=== PATIENT | female | born 1960 | race Caucasian/White ===

== ENCOUNTER 2016-11-22 14:22 | Emergency (ER) | payer SELFPAY ==
[2016-11-22] MEDS ORDERED: NITROGLYCERIN 0.4 MG/TAB 25 TAB/BOTTLE SL PRN (14:52)
--- NOTE | 2016-11-22 14:52 | ER Document Report ---
ED Cardiac - General Chief Complaint: Chest Pain > 30 Stated Complaint: CHEST TIGHTNESS Notes: The patient is a 56-year-old female, past medical history hypertension, "early CHF", current smoker, presents with 1 day of midsternal chest tightness that started at rest. She has had this in the past and had a "mini heart attack" a few years ago. She received 1 nitroglycerin by EMS and took 324 mg aspirin. The nitroglycerin helped with her pain. She moved here from [facility] 2 years ago and has not established a primary care physician yet. She denies leg swelling, shortness of breath, fevers, back pain, cough, sputum, abdominal pain, nausea or vomiting. TRAVEL OUTSIDE OF THE U[place] IN LAST 30 DAYS: No - Related Data Allergies/Adverse Reactions: No Known Allergies Allergy (Verified 11/22/16 16:40) Past Medical History - General Information source: Patient - Social History Smoking Status: Current Every Day Smoker Family History: Reviewed & Not Pertinent Past Surgical History: Reports: Hx Abdominal Surgery - hernia, 27lb tumor removed from ovary, appendectomy, hysterectomy, Hx Appendectomy, Hx Section - x 2, Hx Hysterectomy, Hx Tonsillectomy Review of Systems - Review of Systems Notes: REVIEW OF SYSTEMS: CONSTITUTIONAL: -fevers, -chills EENT: -eye pain, -difficulty swallowing, -nasal congestion CARDIOVASCULAR: +chest pain, -syncope. RESPIRATORY: -cough, -SOB GASTROINTESTINAL: -abdominal pain, - nausea, -vomiting, -diarrhea GENITOURINARY: -dysuria, -hematuria MUSCULOSKELETAL: -back pain, -neck pain SKIN: -rash or skin lesions. HEMATOLOGIC: -easy bruising or bleeding. LYMPHATIC: -swollen, enlarged glands. NEUROLOGICAL: -altered mental status or loss of consciousness, -headache, - neurologic symptoms PSYCHIATRIC: -anxiety, -depression. ALL OTHER SYSTEMS REVIEWED AND NEGATIVE. Physical Exam - Vital signs Vitals: Resp 22 H 11/22/16 14:30 BP 159/100, HR 110, Pulse Ox 97% on RA, RR 20 - Notes Notes: PHYSICAL EXAMINATION: GENERAL: Well-appearing, well-nourished and in no acute distress. HEAD: Atraumatic, normocephalic. EYES: Pupils equal round and reactive to light, extraocular movements intact, sclera anicteric, conjunctiva are normal. ENT: nares patent, oropharynx clear without exudates. Moist mucous membranes. NECK: Normal range of motion, supple without lymphadenopathy LUNGS: Bilateral wheezing. No respiratory distress. HEART: Tachycardia. Regular rhythm. ABDOMEN: Soft, nontender, normoactive bowel sounds. No guarding, no rebound. No masses appreciated. EXTREMITIES: Normal range of motion, no pitting or edema. No cyanosis. NEUROLOGICAL: Cranial nerves grossly intact. Normal speech, normal gait. Normal sensory, motor, and reflex exams. PSYCH: Anxious. SKIN: Warm, Dry, normal turgor, no rashes or lesions noted. Course - Re-evaluation Re-evalutation: Patient is chest pain-free and tachycardia has resolved. EKG and 2 troponins do not show any evidence of acute ischemia. HEART score of 3. Patient is low to moderate risk for PE and d-dimer is negative. Instructed patient that she must follow-up with her primary care physician and payment collector for stress test tomorrow. Told to return immediately to the ER if she has worsening pain. She understands. Answered all questions. - Vital Signs Vital signs: Temp Pulse Resp BP Pulse Ox 97.9 F 99 18 126/76 H 96 11/22/16 14:31 11/22/16 14:31 11/22/16 19:01 11/22/16 19:01 11/22/16 19:01 - Laboratory Result Diagrams: 11/22/16 14:45 11/22/16 14:45 Laboratory results interpreted by me: 11/22/16 14:45 Chloride 109 H BUN 23 H - Diagnostic Test Radiology reviewed: Image reviewed, Reports reviewed Radiology results interpreted by me: CXR: NAD - EKG Interpretation by [place] EKG shows normal: Sinus rhythm, [place], Intervals, QRS Complexes, ST-T Waves Rate: Tachycardia - 103 Discharge - Discharge Clinical Impression: Chest pain Qualifiers: Chest pain type: other chest pain Qualified Code(s): R07.89 - Other chest pain Condition: Stable Disposition: HOME, SELF-CARE Additional Instructions: You must follow-up with the clinic and payment collector for stress test and further evaluation treatment of your chest pain. CHEST PAIN OF UNCLEAR CAUSE: The exact cause of your chest pain isn't clear. Fortunately, there is no evidence of a dangerous medical condition. Further testing may be required to find the source of the pain. Most often, we find that this pain is coming from the chest wall -- the muscles or rib joints in the chest. But chest pain can come from the lung and lung lining, the esophagus, the heart valves or heart lining, and even the stomach or gallbladder. Rest. Eat lightly until the pain is gone. We may prescribe medicine for pain and inflammation. You should call the physician immediately if the pain radiates to the shoulder, jaw or arms; if you start to run a fever or develop a cough; or if you develop shortness of breath, or other new or alarming symptoms. NORMAL EXAM AND WORKUP: At this time, your examination and workup show no significant abnormality. No significant abnormal physical findings were noted. All laboratory, EKG, and imaging (x-ray, CT scans, ultrasound) studies that were ordered show no significant abnormality. Although your examination and all studies that were ordered showed no significant abnormal finding, there are no examinations and no studies that are 100% accurate. There is always the possibility that some abnormality could exist and not be detected with physical examination or within the limits and capabilities of laboratory and other studies. You should return or follow up as you were instructed on your visit today for further evaluation if your symptoms do not resolve. CHEST WALL PAIN: Your chest pain may be coming from the chest wall. This is often caused by straining the muscles or joints in the chest during physical activity, direct trauma, coughing, or vigorous vomiting. Persons with arthritis are especially prone to this type of pain, due to inflammation of the cartilage joints near the breast bone. Occasionally, no cause can be found. Rest from strenuous physical activity. This kind of chest pain is usually made worse by movement of the chest. Depending on the symptoms, we may prescribe medicine for pain, muscle relaxation, and antiinflammatory effects. If the pain is new, and seems to be due to muscle strain, cold packs can help. Otherwise, apply gentle warmth to the painful area for 15 minutes every hour or two. You should call contact the doctor immediately if things change. Further evaluation is needed if you develop a fever or cough, if the nature of the pain changes, or if you become short of breath. ANGINA EPISODE: Your physician has diagnosed the pain you experienced as an episode of angina. Angina occurs when a portion of the heart muscle temporarily lacks oxygen. It does not cause any permanent heart damage, but serves as a warning. Hospitalization is not necessary now. Evaluation of your cardiac condition , and medical therapy for angina will be necessary. It's important you be sure to keep all appointments and take medication exactly as prescribed. Angina is usually treated with a type of "nitrate" medication. This is available as ointment, pills, or sublingual (under the tongue) tablets. Depending on your clinical situation, other medications may be added to help control angina. These may include beta blockers or calcium blockers. If episodes of angina are occurring with increased frequency, or if chest pain lasts longer than 15 minutes or does not respond to nitroglycerin, you must seek emergency medical care immediately. ASPIRIN: Aspirin has been shown to have a beneficial effect on blood circulation by reducing the clotting effect of platelets in the blood. These beneficial effects can be achieved by taking just a single baby (81 mg) aspirin a day. It is recommended that any person over the age of forty take a single baby aspirin every day for heart and brain circulation, unless you are allergic to aspirin or have some significant bleeding disorder. It is strongly recommended that people who have proven cardiac or blood circulation disturbances should take a baby aspirin every day. FOLLOW-UP CARE: If you have been referred to a physician for follow-up care, call the physician s office for an appointment as you were instructed or within the next two days. If you experience worsening or a significant change in your symptoms, notify the physician immediately or return to the Emergency Department at any time for re-evaluation. Referrals: ROBBY TOUSSAINT MD [ACTIVE STAFF] - Follow up as needed
[2016-11-22] MEDS ORDERED: IPRATROPIUM/ALBUTEROL 0.5-2.5 MG/3 ML AMPUL NEB ONE (14:55)
[2016-11-22 15:03] LABS: ABSOLUTE EOSINOPHILS # (AUTO) 0.1 10^3/uL (0.0-0.6); ABSOLUTE LYMPHOCYTES (AUTO) 1.7 10^3/uL (0.5-4.7); ABSOLUTE MONOCYTES (AUTO) 0.6 10^3/uL (0.1-1.4); ABSOLUTE NEUT (AUTO) 4.3 10^3/uL (1.7-8.2); BASOPHILS % (AUTO) 0.7 % (0-2); EOSINOPHILS % (AUTO) 1.5 % (0-6); HEMATOCRIT 41.3 % (36.0-47.0); HEMOGLOBIN 13.7 g/dL (12.0-15.5); HGB HCT DIFFERENCE -0.2; LYMPHOCYTES % (AUTO) 25.1 % (13-45); MEAN CORPUSCULAR HEMOGLOBIN 31.7 pg (27.0-33.4); MEAN CORPUSCULAR HGB CONC 33.2 g/dL (32.0-36.0); MEAN CORPUSCULAR VOLUME 96 fl (80-97); MONOCYTES % (AUTO) 9.2 % (3-13); RED BLOOD COUNT 4.33 10^6/uL (3.72-5.28); RED CELL DISTRIBUTION WIDTH 13.7 % (11.5-14.0); SEGMENTED NEUTROPHILS % (AUTO) 63.5 % (42-78); WHITE BLOOD COUNT 6.7 10^3/uL (4.0-10.5)
[2016-11-22 15:20] LABS: ALANINE AMINOTRANSFERASE 19 U/L (9-52); ALBUMIN 3.5 g/dL (3.5-5.0); ALKALINE PHOSPHATASE 59 U/L (38-126); ANION GAP 9 (5-19); ASPARTATE AMINO TRANSFERASE 14 U/L (14-36); BILIRUBIN,TOTAL 0.3 mg/dL (0.2-1.3); BLOOD UREA NITROGEN 23 mg/dL (7-20); CALCIUM 9.1 mg/dL (8.4-10.2); CARBON DIOXIDE 23 mmol/L (22-30); CHLORIDE 109 mmol/L (98-107); CREATINE KINASE 78 U/L (30-135); CREATININE RESULT 0.86 mg/dL (0.52-1.25); GLUCOSE 105 mg/dL (75-110); POTASSIUM 4.3 mmol/L (3.6-5.0); SODIUM 141.3 mmol/L (137-145); TOTAL PROTEIN 6.3 g/dL (6.3-8.2)
[2016-11-22] MEDS ORDERED: ACETAMINOPHEN 325 MG TABLET PO ONE (17:53)
--- NOTE | 2016-11-22 18:33 | EKG REPORT ---
SEVERITY:- ABNORMAL ECG - SINUS TACHYCARDIA NONSPECIFIC T ABNORMALITIES, LATERAL LEADS : Confirmed by: Michelle Barrientos MD 22-Nov-2016 18:33:01
[2016-11-22 19:41] VITALS: BP 126/76
== END 2016-11-22 19:37 | disposition home or self-care (01) ==
LOC: ER 14:22
DX: R07.89 Other chest pain (principal); F17.210 Nicotine dependence, cigarettes, uncomplicated; I10 Essential (primary) hypertension; I50.9 Heart failure, unspecified
CPT/HCPCS: 93005; 94640; 99284; 36415; 82550; 85025; 80053; 84484; 85379; 71010; 93010; J7620

== ENCOUNTER 2017-08-11 13:38 | Emergency (ER) | payer SELFPAY ==
[2017-08-11] MEDS ORDERED: MORPHINE SULFATE 10 MG/ML INJ IV ONE (13:47)
[2017-08-11] MEDS ORDERED: NORMAL SALINE 1000 ML 1,000 ML IV PRN (13:47)
--- NOTE | 2017-08-11 13:48 | ER Document Report ---
ED Medical Screen (RME) - General Chief Complaint: Abdominal Pain Stated Complaint: ABDOMINAL PAIN Time Seen by Provider: 08/11/17 13:44 Mode of Arrival: Ambulatory Information source: Patient TRAVEL OUTSIDE OF THE [place] IN LAST 30 DAYS: No - HPI Patient complains to provider of: Abdominal pain Notes: 08/11/17 13:48 56-year-old female presents to the emergency room complaining of firm lump to mid abdomen that is painful with vomiting - Related Data Allergies/Adverse Reactions: No Known Allergies Allergy (Verified 08/11/17 13:44) Past Medical History - Past Medical History Cardiac Medical History: Reports: Hx Hypercholesterolemia, Hx Hypertension Renal/ Medical History: Denies: Hx Peritoneal Dialysis Past Surgical History: Reports: Hx Abdominal Surgery - hernia, 27lb tumor removed from ovary, appendectomy, hysterectomy, Hx Appendectomy, Hx Section - x 2, Hx Hysterectomy, Hx Tonsillectomy Physical Exam - Vital signs Vitals: Temp Pulse Resp BP Pulse Ox 98.0 F 100 16 139/94 H 96 08/11/17 13:43 08/11/17 13:43 08/11/17 13:43 08/11/17 13:43 08/11/17 13:43 Course - Vital Signs Vital signs: Temp Pulse Resp BP Pulse Ox 98.0 F 100 16 139/94 H 96 08/11/17 13:43 08/11/17 13:43 08/11/17 13:43 08/11/17 13:43 08/11/17 13:43
[2017-08-11 14:30] LABS: ABSOLUTE EOSINOPHILS # (AUTO) 0.1 10^3/uL (0.0-0.6); ABSOLUTE LYMPHOCYTES (AUTO) 1.9 10^3/uL (0.5-4.7); ABSOLUTE MONOCYTES (AUTO) 0.5 10^3/uL (0.1-1.4); ABSOLUTE NEUT (AUTO) 3.6 10^3/uL (1.7-8.2); BASOPHILS % (AUTO) 0.7 % (0-2); EOSINOPHILS % (AUTO) 2.1 % (0-6); HEMATOCRIT 41.7 % (36.0-47.0); HEMOGLOBIN 14.8 g/dL (12.0-15.5); HGB HCT DIFFERENCE 2.7; LYMPHOCYTES % (AUTO) 30.9 % (13-45); MEAN CORPUSCULAR HEMOGLOBIN 33.5 pg (27.0-33.4); MEAN CORPUSCULAR HGB CONC 35.5 g/dL (32.0-36.0); MEAN CORPUSCULAR VOLUME 94 fl (80-97); MONOCYTES % (AUTO) 8.4 % (3-13); RED BLOOD COUNT 4.42 10^6/uL (3.72-5.28); RED CELL DISTRIBUTION WIDTH 12.9 % (11.5-14.0); SEGMENTED NEUTROPHILS % (AUTO) 57.9 % (42-78); WHITE BLOOD COUNT 6.2 10^3/uL (4.0-10.5)
[2017-08-11 14:39] LABS: PROTHROMBIN TIME 12.1 SEC (11.4-15.4)
[2017-08-11 14:40] LABS: PARTIAL THROMBOPLASTIN TIME 28.9 SEC (23.5-35.8)
--- NOTE | 2017-08-11 14:41 | ER Document Report ---
ED General - General Chief Complaint: Abdominal Pain Stated Complaint: ABDOMINAL PAIN Time Seen by Provider: 08/11/17 13:44 Mode of Arrival: Ambulatory Notes: 56-year-old female history of multiple abdominal surgeries including tumor resection likely lysis of adhesions and multiple abdominal wall hernia repair presents with worsening midline abdominal pain burning and sharp intermittent for several months but worse today associated with an increased amount of bulging and lump in her midline abdomen worse than prior. Vomiting intermittently for the past few days. No fever chills. No urinary symptoms recently. Is passing gas and having bowel movements. TRAVEL OUTSIDE OF THE [place] IN LAST 30 DAYS: No - Related Data Allergies/Adverse Reactions: No Known Allergies Allergy (Verified 08/11/17 13:44) Past Medical History - General Information source: Patient - Social History Smoking Status: Current Every Day Smoker Chew tobacco use (# tins/day): No Frequency of alcohol use: None Drug Abuse: None Family History: Reviewed & Not Pertinent - Medical History Medical History: Other Notes: Abdominal mass bowel resection hysterectomy - Past Medical History Cardiac Medical History: Reports: Hx Hypercholesterolemia, Hx Hypertension Renal/ Medical History: Denies: Hx Peritoneal Dialysis Past Surgical History: Reports: Hx Abdominal Surgery - hernia, 27lb tumor removed from ovary, appendectomy, hysterectomy, Hx Appendectomy, Hx Section - x 2, Hx Hysterectomy, Hx Tonsillectomy Review of Systems - Review of Systems Notes: REVIEW OF SYSTEMS GEN: Denies fever, chills, weight loss ENT: Denies sore throat, nasal discharge, ear pain EYES: Denies blurry vision, eye pain, discharge CV: Denies chest pain, palpitations, edema RESP: Denies cough, shortness of breath, wheezing GI: Abdominal pain mass nausea vomiting MSK: Denies joint pain/swelling, edema, SKIN: Denies rash, skin lesions LYMPH: Denies swollen glands/lymph nodes NEURO: Denies headache, focal weakness or numbness, dizziness PSYCH: Denies depression, suicidal or homicidal ideation PHYSICAL EXAMINATION General: No acute distress, well-nourished Head: Atraumatic, normocephalic ENT: Mouth normal, oropharynx moist, no exudates or tonsillar enlargement Eyes: Conjunctiva normal, pupils equal, lids normal Neck: No JVD, supple, no guarding CVS: Normal rate, regular rhythm, no murmurs Resp: No resp distress, equal and normal breath sounds bilaterally GI: Mild distention. Patient's pants are unbuttoned and cannot button. Hyperactive bowel sounds. Midline ventral hernia versus rectus diastases with mild tenderness. No remote tenderness guarding or rebound. Ext: No deformities, no edema, normal range of motion in upper and lower ext Back: No CVA or midline TTP Skin: No rash, warm Lymphatic: No lymphadeopathy noted Neuro: Awake, alert. Face symmetric. GCS 15. Physical Exam - Vital signs Vitals: Temp Pulse Resp BP Pulse Ox 98.0 F 100 16 139/94 H 96 08/11/17 13:43 08/11/17 13:43 08/11/17 13:43 08/11/17 13:43 08/11/17 13:43 Course - Re-evaluation Re-evalutation: 08/11/17 17:48 Patient with multiple abdominal surgeries and known hernias presents with periumbilical burning abdominal pain and increased bulging subjectively. On exam she has some mild rectus diastases but no definite hernia or tenderness in the area of the hernia. Her differential includes hernia, incarcerated hernia, GERD or other intestinal obstruction. She got labs and pain medicine. CT was ordered which showed fat-containing ventral hernia. Patient was reassessed at 5:48 PM. She feels much better and is asking for something for pain to go as well as some of her acid. I do not believe she has an abdominal emergency at this point, and given her clinical exam I do not believe there is a sliding hernia that is going in and out and causing obstruction. I will prescribe her a short course of [place] for pain as well as an acid reducing medicine and she will follow-up with a local surgeon. Insert discharge - Vital Signs Vital signs: Temp Pulse Resp BP Pulse Ox 98.0 F 100 16 139/94 H 96 08/11/17 13:43 08/11/17 13:43 08/11/17 13:43 08/11/17 13:43 08/11/17 13:43 - Laboratory Result Diagrams: 08/11/17 14:05 08/11/17 14:05 Laboratory results interpreted by me: 08/11/17 08/11/17 14:05 14:05 MCH 33.5 H BUN 21 H Glucose 111 H Direct Bilirubin 0.5 H - Diagnostic Test Radiology reviewed: Reports reviewed Discharge - Discharge Clinical Impression: Abdominal pain, periumbilical Ventral hernia Qualifiers: Obstruction and gangrene presence: without obstruction or gangrene Qualified Code(s): K43.9 - Ventral hernia without obstruction or gangrene Condition: Good Disposition: HOME, SELF-CARE Instructions: Abdominal Pain ([facility]) Prescriptions: Famotidine [Pepcid 20 mg Tablet] 20 mg PO DAILY #12 tablet Hydrocodone/Acetaminophen [[place] 5-325 mg Tablet] 1 tab PO Q4 PRN #10 tablet PRN Reason: Referrals: JEANNA MILLAN MD [[facility]] - Follow up in 1 week
[2017-08-11 14:44] LABS: ALANINE AMINOTRANSFERASE 24 U/L (9-52); ALBUMIN 4.5 g/dL (3.5-5.0); ALKALINE PHOSPHATASE 73 U/L (38-126); ANION GAP 11 (5-19); ASPARTATE AMINO TRANSFERASE 17 U/L (14-36); BILIRUBIN,DIRECT 0.5 mg/dL (0.0-0.4); BILIRUBIN,TOTAL 0.6 mg/dL (0.2-1.3); BLOOD UREA NITROGEN 21 mg/dL (7-20); CARBON DIOXIDE 23 mmol/L (22-30); CHLORIDE 107 mmol/L (98-107); GLUCOSE 111 mg/dL (75-110); LIPASE 120.9 U/L (23-300); POTASSIUM 4.4 mmol/L (3.6-5.0); SODIUM 141.2 mmol/L (137-145); TOTAL PROTEIN 7.6 g/dL (6.3-8.2)
[2017-08-11] MEDS ORDERED: FENTANYL CITRATE INJ/PF 100 MCG/2 ML AMPUL IV ONE (15:49)
--- NOTE | 2017-08-11 16:46 | RADIOLOGY REPORT (SQ) ---
EXAM DESCRIPTION: CT ABD/PELVIS WITH IV ONLY COMPLETED DATE/TIME: 08/11/2017 4:18 pm REASON FOR STUDY: umbilical hernia r/o ngozi COMPARISON: None. TECHNIQUE: CT scan of the abdomen and pelvis performed using helical scanning technique with dynamic intravenous contrast injection. No oral contrast. Images reviewed with lung, soft tissue, and bone windows. Reconstructed coronal and sagittal MPR images reviewed. Delayed images for evaluation of the urinary system also acquired. All images stored on PACS. All CT scanners at this facility use dose modulation, iterative reconstruction, and/or weight based d osing when appropriate to reduce radiation dose to as low as reasonably achievable (ALARA). [facility]: Dose Right [facility]: CareDose [facility]: Dose Right [facility]: Teradose 4D [facility]: Caipiaobao CONTRAST TYPE AND DOSE: contrast/concentration: Isovue 370.00 mg/ml; Total Contrast Delivered: 89.0 ml; Total Saline Delivered: 50.0 ml RENAL FUNCTION: Creatinine 0.9 BUN 21 RADIATION DOSE: Up-to-date CT equipment and radiation dose reduction techniques were employed. CTDIv ol: 12.8 - 17.6 mGy. DLP: 1535 mGy-cm.. LIMITATIONS: None. FINDINGS: LOWER CHEST: No significant findings. No nodules or infiltrates. LIVER: Normal size. No masses. No dilated ducts. SPLEEN: Normal size. No focal lesions. PANCREAS: No masses. No significant calcifications. No adjacent inflammation or peripancreatic fluid collections. Pancreatic duct not dilated. GALLBLADDER: No identified stones by CT criteria. No inflammatory changes to suggest cholecystitis. ADRENAL GLANDS: No significant masses or asymmetry. RIGHT KIDNEY AND URETER: No solid masses. No significant calcifications. No hydronephrosis or hyd roureter. LEFT KIDNEY AND URETER: No solid masses. No significant calcifications. No hydronephrosis or hydr oureter. AORTA AND VESSELS: No aneurysm. No dissection. Renal arteries, SMA, celiac without stenosis. RETROPERITONEUM: No retroperitoneal adenopathy, hemorrhage or masses. BOWEL AND PERITONEAL CAVITY: No masses or inflammatory changes. No free fluid or peritoneal masses. APPENDIX: Surgically absent. PELVIS: No mass. No free fluid. Normal bladder. ABDOMINAL WALL: The patient appears to have had a ventral hernia repair with a mesh graft. Just supe rior to the graft there is a very small defect less than 1 cm in size that contains only fat. BONES: Thoracolumbar spondylosis. No osseous lesions. OTHER: No other significant finding. IMPRESSION: There is a very small ventral hernia just above the superior margin of the mesh graft. This contains only fat. TECHNICAL DOCUMENTATION: JOB ID: [id number] Quality ID # [id number]: Final reports with documentation of one or more dose reduction techniques (e.g., Au tomated exposure control, adjustment of the mA and/or kV according to patient size, use of iterative reconstruction technique) 2010 [employer]- All Rights Reserved
[2017-08-11 17:59] VITALS: BP 152/90
== END 2017-08-11 18:05 | disposition home or self-care (01) ==
LOC: ER 13:38
DX: K43.9 Ventral hernia without obstruction or gangrene (principal); R10.33 Periumbilical pain; R11.2 Nausea with vomiting, unspecified; I10 Essential (primary) hypertension; Z98.890 Other specified postprocedural states; Z90.710 Acquired absence of both cervix and uterus; Z90.49 Acquired absence of other specified parts of digestive tract
CPT/HCPCS: 99284; 96374; 96375; 36415; 83690; 85025; 85610; 85730; 80053; 74177; J3010; J2270

== ENCOUNTER 2017-10-12 06:00 | Emergency (ER) | payer SELFPAY ==
[2017-10-12] MEDS ORDERED: CYCLOBENZAPRINE HCL 10 MG TABLET PO ONE (06:59)
[2017-10-12] MEDS ORDERED: KETOROLAC TROMETHAMINE 60 MG/2 ML SDV IM ONE (06:59)
--- NOTE | 2017-10-12 07:00 | ER Document Report ---
ED General Pain - General Chief Complaint: Back Pain Stated Complaint: FLANK PAIN Time Seen by Provider: 10/12/17 06:50 Notes: Patient presents with acute on chronic low back pain, upper lumbar lower thoracic midline similar to prior except for some radiation around the right flank. She is taking lots of Motrin at home. Previously had a deep nerve stimulator as well as pain management in [place] but is moved here and has been here for over a year and not contacted pain management or primary care. She denies urinary symptoms or fever. Unchanged chronic numbness in both feet. No loss of bowel or bladder. No fever. TRAVEL OUTSIDE OF THE [place] IN LAST 30 DAYS: No - Related Data Allergies/Adverse Reactions: No Known Allergies Allergy (Verified 08/11/17 13:44) Past Medical History - General Information source: Patient - Social History Smoking Status: Current Every Day Smoker Smoking Education Provided: Yes - The patient ED visit today was directly related to their abuse of tobacco. Family History: Reviewed & Not Pertinent - Past Medical History Cardiac Medical History: Reports: Hx Hypercholesterolemia, Hx Hypertension Renal/ Medical History: Denies: Hx Peritoneal Dialysis Past Surgical History: Reports: Hx Abdominal Surgery - hernia, 27lb tumor removed from ovary, appendectomy, hysterectomy, Hx Appendectomy, Hx Section - x 2, Hx Hysterectomy, Hx Tonsillectomy Physical Exam - Vital signs Vitals: Temp Pulse Resp BP Pulse Ox 98.4 F 84 18 185/74 H 98 10/12/17 06:03 10/12/17 06:03 10/12/17 06:03 10/12/17 06:03 10/12/17 06:03 Course - Re-evaluation Re-evalutation: 10/12/17 07:01 Patient presents with acute on chronic back pain. Unchanged neuro status. Previously on pain management. Slightly decreased sensation in both legs which she says is chronic. Only new feature would be radiation around to the flank. Will rule out kidney stone and pyelonephritis but I think this is less likely given her history of chronic degenerative back disease. She did not get a ride here and will not receive narcotics in the emergency department. She will also not receive a prescription given that this is chronic pain. I will contact her with spine and pain management on discharge. Does not need imaging today in my opinion. Doubt cauda equina compression or abscess. No history of malignancy. I have discussed with the patient there likely diagnosis, aftercare plan, follow-up plans and my usual and customary return precautions. They verbalized understanding of this. - Vital Signs Vital signs: Temp Pulse Resp BP Pulse Ox 98.4 F 84 18 185/74 H 98 10/12/17 06:03 10/12/17 06:03 10/12/17 06:03 10/12/17 06:03 10/12/17 06:03 Discharge - Discharge Clinical Impression: Acute exacerbation of chronic low back pain Condition: Good Disposition: HOME, SELF-CARE Prescriptions: Gabapentin [Neurontin 300 mg Capsule] 300 mg PO QHS #30 cap Prednisone 40 mg PO QAM #10 tablet Referrals: MONIQUE CARLSON MD [ACTIVE STAFF] - Follow up as needed
[2017-10-12 07:51] LABS: APPEARANCE,URINE SLIGHTLY-CLOUDY; BILIRUBIN,URINE NEGATIVE (NEGATIVE); GLUCOSE, URINE 50 mg/dL (NEGATIVE); KETONES,URINE NEGATIVE (NEGATIVE); LEUKOCYTE ESTERASE,URINE MODERATE (NEGATIVE); NITRITE,URINE POSITIVE (NEGATIVE); PROTEIN,URINE NEGATIVE (NEGATIVE); URINE SPECIFIC GRAVITY 1.025; UROBILINOGEN,URINE NEGATIVE mg/dL (<2.0)
[2017-10-12 07:53] LABS: BACTERIA,URINE 4+ /HPF; WBC,URINE 20-30 /HPF
[2017-10-12 08:59] VITALS: BP 156/77
== END 2017-10-12 08:58 | disposition home or self-care (01) ==
LOC: ER 06:00
DX: N12 Tubulo-interstitial nephritis, not specified as acute or chronic (principal); G89.29 Other chronic pain; M54.5 Low back pain; M54.6 Pain in thoracic spine; R20.0 Anesthesia of skin; I10 Essential (primary) hypertension; F17.200 Nicotine dependence, unspecified, uncomplicated; Z71.6 Tobacco abuse counseling
CPT/HCPCS: 99283; 96372; 81001; J1885

== ENCOUNTER → 2018-03-03 | Outpatient (CLI) | payer OTHER ==
[2018-03-03 09:14] LABS: ABSOLUTE EOSINOPHILS # (AUTO) 0.1 10^3/uL (0.0-0.6); ABSOLUTE LYMPHOCYTES (AUTO) 1.8 10^3/uL (0.5-4.7); ABSOLUTE MONOCYTES (AUTO) 0.4 10^3/uL (0.1-1.4); ABSOLUTE NEUT (AUTO) 2.3 10^3/uL (1.7-8.2); BASOPHILS % (AUTO) 0.5 % (0-2); EOSINOPHILS % (AUTO) 2.8 % (0-6); HEMATOCRIT 41.8 % (36.0-47.0); HEMOGLOBIN 14.3 g/dL (12.0-15.5); LYMPHOCYTES % (AUTO) 38.7 % (13-45); MEAN CORPUSCULAR HEMOGLOBIN 32.9 pg (27.0-33.4); MEAN CORPUSCULAR HGB CONC 34.1 g/dL (32.0-36.0); MEAN CORPUSCULAR VOLUME 96 fl (80-97); MONOCYTES % (AUTO) 9.3 % (3-13); PLATELET COUNT 188 10^3/uL (150-450); RED BLOOD COUNT 4.34 10^6/uL (3.72-5.28); RED CELL DISTRIBUTION WIDTH 13.1 % (11.5-14.0); SEGMENTED NEUTROPHILS % (AUTO) 48.7 % (42-78); TOTAL CELLS COUNTED % (AUTO) 100 %; WHITE BLOOD COUNT 4.7 10^3/uL (4.0-10.5)
--- NOTE | 2018-03-03 09:38 | RADIOLOGY REPORT (SQ) ---
EXAM DESCRIPTION: L SPINE WHOLE COMPLETED DATE/TIME: 03/03/2018 9:03 am REASON FOR STUDY: LOW BACK PAIN (M19.90) M19.90 UNSPECIFIED OSTEOARTHRITIS, UNSPECIFIED SITE COMPARISON: None. NUMBER OF VIEWS: Five views including obliques. TECHNIQUE: AP, lateral, oblique, and sacral radiographic images acquired of the lumbar spine. LIMITATIONS: None. FINDINGS: MINERALIZATION: Normal. SEGMENTATION: Normal. No transitional anatomy. ALIGNMENT: Normal. VERTEBRAE: Maintained height. No fracture or worrisome bone lesion. DISCS: Multilevel disc space narrowing with osteophytes. POSTERIOR ELEMENTS: Pedicles and facets are intact. No pars defect or posterior arch defects. Facet arthropathy is present. HARDWARE: None in the spine. PARASPINAL SOFT TISSUES: Normal. PELVIS: Intact as visualized. No fractures or worrisome bone lesions. SI joints intact. OTHER: No other significant finding. IMPRESSION: SPONDYLOSIS WITHOUT BONE LESION OR FRACTURE. TECHNICAL DOCUMENTATION: JOB ID: [id number] [employer]- All Rights Reserved Reading location - IP/workstation name: [facility]-REPLACED BY [facility]
[2018-03-03 09:43] LABS: ALANINE AMINOTRANSFERASE 17 U/L (9-52); ALBUMIN 3.8 g/dL (3.5-5.0); ALKALINE PHOSPHATASE 64 U/L (38-126); ANION GAP 10 (5-19); ASPARTATE AMINO TRANSFERASE 13 U/L (14-36); BILIRUBIN,DIRECT 0.3 mg/dL (0.0-0.4); BILIRUBIN,TOTAL 0.3 mg/dL (0.2-1.3); BLOOD UREA NITROGEN 18 mg/dL (7-20); CALCIUM 9.4 mg/dL (8.4-10.2); CARBON DIOXIDE 27 mmol/L (22-30); CHLORIDE 108 mmol/L (98-107); CHOLESTEROL 254.12 mg/dL (0-200); GLUCOSE 124 mg/dL (75-110); SODIUM 144.5 mmol/L (137-145); TOTAL PROTEIN 6.6 g/dL (6.3-8.2); TRIGLYCERIDES 314 mg/dL (<150)
[2018-03-03 09:54] LABS: DIRECT LDL 140 mg/dL (<100)
[2018-03-03 09:58] LABS: VLDL CHOLESTEROL 62.8 mg/dL (10-31)
== END ==
LOC: CCC 08:05
DX: M54.5 Low back pain (principal); M47.896 Other spondylosis, lumbar region; E78.5 Hyperlipidemia, unspecified; M19.90 Unspecified osteoarthritis, unspecified site
CPT/HCPCS: 36415; 72110; 80053; 80061; 82306; 83036; 84443; 85025

== ENCOUNTER 2018-11-05 12:02 | Emergency (ER) | payer BC, OTHER ==
--- NOTE | 2018-11-05 12:57 | ER Document Report ---
ED Medical Screen (RME) - General Chief Complaint: Back Pain Stated Complaint: FALL,LEG PAIN Time Seen by Provider: 11/05/18 12:20 Mode of Arrival: Ambulatory Information source: Patient Notes: 58-year-old female presented to ED for complaint of bilateral legs arm and back pain. She states that she intermittently has severe leg cramps and shaking. She states it used to be limited to the left leg and now is both arms and both legs. She states this is just been first a couple days. She states she was going to the community clinic but never told them about the shaking and cramping in the left leg. She states she was seeing them for high cholesterol high blood pressure spinal disc disease diabetes and vitamin D deficiency. She states this shaking has gotten to the point that now she drops things all the time and when she is driving down the road sometimes she cannot roller picker her leg to move it from one pedal to the other. She states that yesterday the pain was much worse than normal. She states she has had to come to the emergency room and be admitted for low potassium and stay for several days to replenish her potassium. She does states she smokes a pack a day but does not drink or do any drugs. I have spoken with Dr. Bowesn and he suggested CBC chemistry magnesium and EKG. These were ordered. I have greeted and performed a rapid initial assessment of this patient. A comprehensive ED assessment and evaluation of the patient, analysis of test results and completion of medical decision making process will be conducted by an additional ED providers. TRAVEL OUTSIDE OF THE [place] IN LAST 30 DAYS: No - Related Data Allergies/Adverse Reactions: No Known Allergies Allergy (Verified 11/05/18 12:04) Past Medical History - Past Medical History Cardiac Medical History: Reports: Hx Hypercholesterolemia, Hx Hypertension Renal/ Medical History: Denies: Hx Peritoneal Dialysis Past Surgical History: Reports: Hx Abdominal Surgery - hernia, 27lb tumor removed from ovary, appendectomy, hysterectomy, Hx Appendectomy, Hx Section - x 2, Hx Hysterectomy, Hx Tonsillectomy Physical Exam - Vital signs Vitals: Temp Pulse Resp BP Pulse Ox 98.4 F 117 H 18 187/82 H 100 11/05/18 12:13 11/05/18 12:13 11/05/18 12:13 11/05/18 12:13 11/05/18 12:13 Course - Vital Signs Vital signs: Temp Pulse Resp BP Pulse Ox 98.4 F 117 H 18 187/82 H 100 11/05/18 12:13 11/05/18 12:13 11/05/18 12:13 11/05/18 12:13 11/05/18 12:13 Doctor's Discharge - Discharge Referrals: [facility] [Primary Care Provider] - Follow up as needed
--- NOTE | 2018-11-05 13:21 | ER Document Report ---
ED General Pain - General Chief Complaint: Back Pain Stated Complaint: FALL,LEG PAIN Time Seen by Provider: 11/05/18 12:20 Mode of Arrival: Ambulatory Notes: 58-year-old female presented to ED for complaint of bilateral legs arm and back pain. She states that she intermittently has severe leg cramps and shaking. Sh e states it used to be limited to the left leg and now is both arms and both legs. She states she was going to the community clinic but never told them about the shaking and cramping in the left leg. The patient has a history of chronic back pain and was supposed to have surgery on her back several years ago but it got canceled and she never reengaged. A history of chronic low back pain and intermittent numbness and tingling of the legs that come and go. For the last year the patient has been having tremors on and off on her upper extremities. She states it switches from the right arm to the left arm and back and forth. She has seen a [facility] but really has not worked this up. Patient is very anxious. She denies any chest pain or shortness of breath. TRAVEL OUTSIDE OF THE [place] IN LAST 30 DAYS: No - Related Data Allergies/Adverse Reactions: No Known Allergies Allergy (Verified 11/05/18 12:04) Past Medical History - General Information source: Patient - Social History Smoking Status: Never Smoker Chew tobacco use (# tins/day): No Frequency of alcohol use: None Drug Abuse: None Family History: Reviewed & Not Pertinent Patient has suicidal ideation: No Patient has homicidal ideation: No - Past Medical History Cardiac Medical History: Reports: Hx Hypercholesterolemia, Hx Hypertension Renal/ Medical History: Denies: Hx Peritoneal Dialysis Past Surgical History: Reports: Hx Abdominal Surgery - hernia, 27lb tumor removed from ovary, appendectomy, hysterectomy, Hx Appendectomy, Hx Section - x 2, Hx Hysterectomy, Hx Tonsillectomy Review of Systems - Review of Systems Constitutional: denies: Chills, Fever EENT: denies: Blurred vision Cardiovascular: denies: Chest pain, Edema Respiratory: denies: Short of breath Gastrointestinal: denies: Nausea, Vomiting Genitourinary: denies: Dysuria, Hematuria Musculoskeletal: Back pain Neurological/Psychological: Sensory change, Tremor. denies: Hallucinations, Paralysis, Headaches -: Yes All other systems reviewed and negative Physical Exam - Vital signs Vitals: Temp Pulse Resp BP Pulse Ox 98.4 F 117 H 18 187/82 H 100 11/05/18 12:13 11/05/18 12:13 11/05/18 12:13 11/05/18 12:13 11/05/18 12:13 - Notes Notes: GENERAL_APPEARANCE: well_nourished, alert, cooperative, anxious VITALS: reviewed, see vital signs table. HEAD: no_swelling\tenderness on the head. EYES: PERRL, EOMI, conjunctiva_clear. NOSE: no_nasal_discharge. MOUTH: (-)decreased moisture. THROAT: no_throat_inflammation, no_airway_obstruction. no_lymphadenopathy NECK: supple, no_neck_tenderness, (-)thyromegaly. BACK: L4-L5 midline no step-offs no deformities, healed scar no redness no heat CHEST_WALL: no_chest_tenderness. LUNGS: no_wheezing, no_rales, no_rhonchi, (-)accessory muscle use, good air exchange bilateral. HEART: normal_rate, normal_rhythm, normal_S1, normal_S2, (-)S3, (-)S4, no_murmur, no_rub. ABDOMEN: normal_BS, soft, no_abd_tenderness, (-)guarding, (-)rebound, no_organomegaly, no_abd_masses. EXTREMITIES: good pulses in all_extremities, no_swelling\tenderness in the extremities, no_edema. SKIN: warm, dry, good_color, no_rash. MENTAL_STATUS: speech_clear, oriented_X_3, normal_affect, responds_appropriately to questions. NEURO: Neg Motor or Sensory Deficits on exam, CN 2-12 intact, DTR 2+ symmetric x 4, No cerbellar signs, the patient does have a tremor of bilateral upper extremities on exam the patient's right arm would shake and then it was switched to the left arm. This was back and forth the seem to be intentional. Course - Re-evaluation Re-evalutation: 11/05/18 13:19 Went to the room to see her and she was not in the room. The patient walked out to her car and came back into the ER. She was walking without signs of any ataxia. Her neuro exam shows no focal deficits. The patient complains of intermittent tremor of the upper extremities. She states the tremor goes back and forth on her right to her left arm. Occasionally she will feel pins and needles to the right or left arm. She also history of chronic back pain was postop surgery 3 years ago and states he has chronic issues with her legs. The patient told the PA that she had low potassium the last time this happened and had to be hospitalized. 11/05/18 13:22 We will check the potassium. We will check for electrolyte abnormalities. The patient will likely need to see a neurologist and pick back up with her neurosurgeon. 11/05/18 15:02 Potassium and magnesium were normal CT of the brain was normal. The patient has been from out of the area. She tells me a story that her was addicted to methamphetamine while she lived in [place]. Patient is asked for some pain medicine I will prescribe her something n onnarcotic. We will try some gabapentin since this may be neuropathic pain. As far as the tremors concern she will need to see a neurologist for that I will do a referral. - Vital Signs Vital signs: Temp Pulse Resp BP Pulse Ox 98.4 F 117 H 18 187/82 H 100 11/05/18 12:13 11/05/18 12:13 11/05/18 12:13 11/05/18 12:13 11/05/18 12:13 - Laboratory Result Diagrams: 11/05/18 13:22 11/05/18 13:22 Laboratory results interpreted by me: 11/05/18 13:22 BUN 21 H Glucose 136 H Discharge - Discharge Clinical Impression: Tremor, Neuropathy Condition: Good Disposition: HOME, SELF-CARE Instructions: Neuropathy ([facility]) Additional Instructions: He will need to have a referral to neurology for your chronic tremor. I think some your numbness is due to neuropathy. Will prescribe some gabapentin for you. You also need to reengage your back surgeon to have your back reevaluated for the surgery that you did not have several years ago. Prescriptions: Gabapentin [Neurontin 300 mg Capsule] 300 mg PO Q8 #90 cap Referrals: [facility] [NO LOCAL MD] - Follow up as needed ANITRA MESSER MD [NO LOCAL MD] - Follow up as needed CRIS CHAUDHARI MD [ACTIVE STAFF] - Follow up as needed KALLI SALINAS MD [NO LOCAL MD] - Follow up as needed
[2018-11-05 13:51] LABS: APPEARANCE,URINE CLEAR; BILIRUBIN,URINE NEGATIVE (NEGATIVE); COLOR,URINE YELLOW; GLUCOSE, URINE NEGATIVE (NEGATIVE); KETONES,URINE NEGATIVE (NEGATIVE); LEUKOCYTE ESTERASE,URINE NEGATIVE (NEGATIVE); NITRITE,URINE NEGATIVE (NEGATIVE); PROTEIN,URINE NEGATIVE (NEGATIVE); URINE SPECIFIC GRAVITY 1.014; UROBILINOGEN,URINE NEGATIVE mg/dL (<2.0)
--- NOTE | 2018-11-05 13:51 | RADIOLOGY REPORT (SQ) ---
EXAM DESCRIPTION: CT HEAD WITHOUT COMPLETED DATE/TIME: 11/05/2018 1:36 pm REASON FOR STUDY: tremors COMPARISON: None. TECHNIQUE: Axial images acquired through the brain without intravenous contrast. Images reviewed wi th bone, brain and subdural windows. Additional sagittal and coronal reconstructions were generated. Images stored on PACS. All CT scanners at this facility use dose modulation, iterative reconstruction, and/or weight based d osing when appropriate to reduce radiation dose to as low as reasonably achievable (ALARA). [facility]: Dose Right [facility]: CareDose [facility]: Dose Right [facility]: Teradose 4D [facility]: NEOS [employer] RADIATION DOSE: CT Rad equipment meets quality standard of care and radiation dose reduction techniq ues were employed. CTDIvol: 55.2 mGy. DLP: 1001 mGy-cm. mGy. LIMITATIONS: None. FINDINGS: VENTRICLES: Normal size and contour. CEREBRUM: No masses. No hemorrhage. No midline shift. No evidence for acute infarction. Normal gra y/white matter differentiation. No areas of low density in the white matter. CEREBELLUM: No masses. No hemorrhage. No alteration of density. No evidence for acute infarction. EXTRAAXIAL SPACES: No fluid collections. No masses. ORBITS AND GLOBE: No intra- or extraconal masses. Normal contour of globe without masses. CALVARIUM: No fracture. PARANASAL SINUSES: Postoperative changes. No fluid. SOFT TISSUES: No mass or hematoma. OTHER: Mild left mastoid effusion. IMPRESSION: 1. Mild left mastoid effusion. Otherwise unremarkable CT of the brain. EVIDENCE OF ACUTE STROKE: NO. COMMENT: Quality ID # [id number]: Final reports with documentation of one or more dose reduction techniques (e.g., Automated exposure control, adjustment of the mA and/or kV according to patient size, use of iterative reconstruction technique) TECHNICAL DOCUMENTATION: JOB ID: [id number] [employer]- All Rights Reserved Reading location - IP/workstation name: [email or web address]
[2018-11-05 13:57] LABS: ABSOLUTE EOSINOPHILS # (AUTO) 0.1 10^3/uL (0.0-0.6); ABSOLUTE LYMPHOCYTES (AUTO) 2.1 10^3/uL (0.5-4.7); ABSOLUTE MONOCYTES (AUTO) 0.7 10^3/uL (0.1-1.4); ABSOLUTE NEUT (AUTO) 2.4 10^3/uL (1.7-8.2); BASOPHILS % (AUTO) 0.7 % (0-2); EOSINOPHILS % (AUTO) 2.4 % (0-6); HEMOGLOBIN 13.8 g/dL (12.0-15.5); MEAN CORPUSCULAR HEMOGLOBIN 32.4 pg (27.0-33.4); MEAN CORPUSCULAR HGB CONC 35.3 g/dL (32.0-36.0); MEAN CORPUSCULAR VOLUME 92 fl (80-97); MONOCYTES % (AUTO) 12.2 % (3-13); PLATELET COUNT 220 10^3/uL (150-450); RED BLOOD COUNT 4.26 10^6/uL (3.72-5.28); SEGMENTED NEUTROPHILS % (AUTO) 44.7 % (42-78); TOTAL CELLS COUNTED % (AUTO) 100 %; WHITE BLOOD COUNT 5.4 10^3/uL (4.0-10.5)
[2018-11-05 14:06] LABS: ALANINE AMINOTRANSFERASE 19 U/L (9-52); ALBUMIN 3.9 g/dL (3.5-5.0); ALKALINE PHOSPHATASE 68 U/L (38-126); ANION GAP 8 (5-19); ASPARTATE AMINO TRANSFERASE 15 U/L (14-36); BILIRUBIN,DIRECT 0.3 mg/dL (0.0-0.4); BILIRUBIN,TOTAL 0.4 mg/dL (0.2-1.3); BLOOD UREA NITROGEN 21 mg/dL (7-20); CALCIUM 9.4 mg/dL (8.4-10.2); CARBON DIOXIDE 23 mmol/L (22-30); CHLORIDE 107 mmol/L (98-107); GLUCOSE 136 mg/dL (75-110); POTASSIUM 4.1 mmol/L (3.6-5.0); SODIUM 137.6 mmol/L (137-145); TOTAL PROTEIN 6.6 g/dL (6.3-8.2)
[2018-11-05 15:25] VITALS: BP 142/97
--- NOTE | 2018-11-05 20:28 | EKG REPORT ---
SEVERITY:- BORDERLINE ECG - SINUS RHYTHM BORDERLINE T ABNORMALITIES, ANT-LAT LEADS : Confirmed by: Enriqueta Ramirez 05-Nov-2018 20:27:44
== END 2018-11-05 15:25 | disposition home or self-care (01) ==
LOC: ER 12:02
DX: R25.1 Tremor, unspecified (principal); G62.9 Polyneuropathy, unspecified; M79.604 Pain in right leg; M79.605 Pain in left leg; R25.2 Cramp and spasm; M54.9 Dorsalgia, unspecified; G89.29 Other chronic pain; I10 Essential (primary) hypertension
CPT/HCPCS: 36415; 70450; 80053; 81001; 83735; 85025; 93005; 93010; 99284

== ENCOUNTER 2019-04-27 08:56 | Emergency (ER) | payer BC ==
--- NOTE | 2019-04-27 10:22 | ER Document Report ---
ED Medical Screen (RME) - General Chief Complaint: Foot Pain Stated Complaint: FOOT PAIN Time Seen by Provider: 04/27/19 10:15 Primary Care Provider: BRDAEN GARVIN DPM [Primary Care Provider] - Follow up as needed Mode of Arrival: Ambulatory Information source: Patient Notes: Patient presents emergency department with left foot pain. She reports 2 to 3 months ago she had a blister on her foot and chicken blood got soaked into the blister. Patient works at a chicken farm. She was placed on antibiotics. She went to see Dr. Garvin the supervisory geographer a couple weeks ago and he said he could not find a pulse on her foot so he sent her for another test. Positive pedal pulse noted now. She was unable to get that test done because she did not have a car. She presents today with painful great toe swollen warm with erythema and healing blister on the lateral part of her left foot. I have greeted and performed a rapid initial assessment of this patient. A comprehensive ED assessment and evaluation of the patient, analysis of test results and completion of the medical decision making process will be conducted by additional ED providers. Dictation of this chart was performed using voice recognition software; therefore, there may be some unintended grammatical errors. TRAVEL OUTSIDE OF THE [place] IN LAST 30 DAYS: No - Related Data Allergies/Adverse Reactions: No Known Allergies Allergy (Verified 04/27/19 09:01) Past Medical History - Past Medical History Cardiac Medical History: Reports: Hx Hypercholesterolemia, Hx Hypertension Renal/ Medical History: Denies: Hx Peritoneal Dialysis Past Surgical History: Reports: Hx Abdominal Surgery - hernia, 27lb tumor removed from ovary, appendectomy, hysterectomy, Hx Appendectomy, Hx Section - x 2, Hx Hysterectomy, Hx Tonsillectomy Physical Exam - Vital signs Vitals: Temp Pulse Resp BP Pulse Ox 98.2 F 112 H 22 H 133/66 H 99 04/27/19 09:03 04/27/19 09:03 04/27/19 09:03 04/27/19 09:03 04/27/19 09:03 Course - Vital Signs Vital signs: Temp Pulse Resp BP Pulse Ox 98.2 F 112 H 22 H 133/66 H 99 04/27/19 09:03 04/27/19 09:03 04/27/19 09:03 04/27/19 09:04/27/19 09:03 Doctor's Discharge - Discharge Referrals: BRADEN GARVIN DPM [Primary Care Provider] - Follow up as needed
[2019-04-27 10:44] LABS: ABSOLUTE BASOPHILS # (AUTO) 0.1 10^3/uL (0.0-0.2); ABSOLUTE EOSINOPHILS # (AUTO) 0.1 10^3/uL (0.0-0.6); ABSOLUTE LYMPHOCYTES (AUTO) 1.8 10^3/uL (0.5-4.7); ABSOLUTE MONOCYTES (AUTO) 0.6 10^3/uL (0.1-1.4); ABSOLUTE NEUT (AUTO) 2.9 10^3/uL (1.7-8.2); BASOPHILS % (AUTO) 0.9 % (0-2); EOSINOPHILS % (AUTO) 2.5 % (0-6); HEMATOCRIT 40.9 % (36.0-47.0); HEMOGLOBIN 14.2 g/dL (12.0-15.5); LYMPHOCYTES % (AUTO) 33.6 % (13-45); MEAN CORPUSCULAR HEMOGLOBIN 31.2 pg (27.0-33.4); MEAN CORPUSCULAR HGB CONC 34.8 g/dL (32.0-36.0); MEAN CORPUSCULAR VOLUME 90 fl (80-97); MONOCYTES % (AUTO) 10.2 % (3-13); PLATELET COUNT 220 10^3/uL (150-450); RED BLOOD COUNT 4.56 10^6/uL (3.72-5.28); RED CELL DISTRIBUTION WIDTH 14.3 % (11.5-14.0); SEGMENTED NEUTROPHILS % (AUTO) 52.8 % (42-78); TOTAL CELLS COUNTED % (AUTO) 100 %; WHITE BLOOD COUNT 5.5 10^3/uL (4.0-10.5)
[2019-04-27 11:07] LABS: ALANINE AMINOTRANSFERASE 21 U/L (9-52); ALBUMIN 4.5 g/dL (3.5-5.0); ALKALINE PHOSPHATASE 75 U/L (38-126); ANION GAP 9 (5-19); ASPARTATE AMINO TRANSFERASE 14 U/L (14-36); BILIRUBIN,DIRECT 0.3 mg/dL (0.0-0.4); BILIRUBIN,TOTAL 0.5 mg/dL (0.2-1.3); BLOOD UREA NITROGEN 19 mg/dL (7-20); CALCIUM 10.2 mg/dL (8.4-10.2); CARBON DIOXIDE 24 mmol/L (22-30); CHLORIDE 103 mmol/L (98-107); GLUCOSE 129 mg/dL (75-110); POTASSIUM 4.5 mmol/L (3.6-5.0); SODIUM 136.4 mmol/L (137-145); TOTAL PROTEIN 7.8 g/dL (6.3-8.2)
--- NOTE | 2019-04-27 11:27 | RADIOLOGY REPORT (SQ) ---
EXAM DESCRIPTION: FOOT LEFT COMPLETE COMPLETED DATE/TIME: 04/27/2019 10:51 am REASON FOR STUDY: infection, pain COMPARISON: None. NUMBER OF VIEWS: Three views. TECHNIQUE: AP, lateral and oblique radiographic images acquired of the left foot. LIMITATIONS: None. FINDINGS: MINERALIZATION: Normal. BONES: No acute fracture or dislocation. No worrisome bone lesions. JOINTS: No effusions. SOFT TISSUES: Diffuse forefoot soft tissue swelling. No foreign body. OTHER: No other significant finding. IMPRESSION: Diffuse forefoot soft tissue swelling TECHNICAL DOCUMENTATION: JOB ID: [id number] [employer]- All Rights Reserved Reading location - IP/workstation name: [email or web address]
[2019-04-27] MEDS ORDERED: OXYCODONE-ACETAMINOPHEN 5-325 MG TABLET PO ONE (11:30)
--- NOTE | 2019-04-27 11:39 | ER Document Report ---
ED Extremity Problem, Lower - General Chief Complaint: Foot Pain Stated Complaint: FOOT PAIN Time Seen by Provider: 04/27/19 10:15 Primary Care Provider: BRADEN GARVIN DPM [ACTIVE STAFF] - Follow up as needed Mode of Arrival: Ambulatory Notes: Patient is a 88-year-old female with a history of hypertension, acid reflux, high cholesterol presents to the emergency department with left foot pain. Patient states about 3 months ago she had an open blister to the left lateral foot and while at work the blister was exposed to chicken blood. 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 Patient states that at the farm they do have a physician and was initially placed on antibiotics. Patient states she cannot remember the name of the antibiotic she was placed on but that it did not help. Patient did see her primary care physician in [facility] who referred her to a foot doctor. Patient reports about 2 weeks ago she saw Dr. Garvin who told the patient he was unable to feel a pulse in the left foot and was sent over to [place] for additional testing. Patient states she was unable to come to the hospital as she did not have a ride or the financial means for this. Patient states that over the past 2 weeks she has experienced more pain to all 5 toes and has been limping due to the discomfort. Patient denies fever, chills, nausea, vomiting or any other concerns. Patient states that her toes have been red in color and very tender to the touch. Patient states she does wear thigh-high boots while at work. TRAVEL OUTSIDE OF THE [place] IN LAST 30 DAYS: No - Related Data Allergies/Adverse Reactions: No Known Allergies Allergy (Verified 04/27/19 09:01) Past Medical History - General Information source: Patient - Social History Smoking Status: Current Every Day Smoker Chew tobacco use (# tins/day): No Frequency of alcohol use: None Drug Abuse: None Family History: Reviewed & Not Pertinent Patient has suicidal ideation: No Patient has homicidal ideation: No - Past Medical History Cardiac Medical History: Reports: Hx Hypercholesterolemia, Hx Hypertension Pulmonary Medical History: Reports: None EENT Medical History: Reports: None Neurological Medical History: Reports: None Endocrine Medical History: Reports: None Renal/ Medical History: Reports: None. Denies: Hx Peritoneal Dialysis Malignancy Medical History: Reports: None GI Medical History: Reports: None Musculoskeletal Medical History: Reports None Skin Medical History: Reports None Psychiatric Medical History: Reports: None Traumatic Medical History: Reports: None Infectious Medical History: Reports: None Past Surgical History: Reports: Hx Abdominal Surgery - hernia, 27lb tumor removed from ovary, appendectomy, hysterectomy, Hx Appendectomy, Hx Section - x 2, Hx Hysterectomy, Hx Tonsillectomy Review of Systems - Review of Systems Constitutional: No symptoms reported EENT: No symptoms reported Cardiovascular: No symptoms reported Respiratory: No symptoms reported Gastrointestinal: No symptoms reported Genitourinary: No symptoms reported Female Genitourinary: No symptoms reported Musculoskeletal: See HPI Skin: See HPI Hematologic/Lymphatic: No symptoms reported Neurological/Psychological: No symptoms reported Physical Exam - Vital signs Vitals: Temp Pulse Resp BP Pulse Ox 98.2 F 112 H 22 H 133/66 H 99 04/27/19 09:03 04/27/19 09:03 04/27/19 09:03 04/27/19 09:03 04/27/19 09:03 Interpretation: Tachycardic - Notes Notes: GENERAL: Well-appearing, well-nourished and in no acute distress. HEAD: Atraumatic, normocephalic. EYES: Pupils equal round and reactive to light, extraocular movements intact, sclera anicteric, conjunctiva are normal. ENT: TMs normal, nares patent, oropharynx clear without exudates. Moist mucous membranes. NECK: Normal range of motion, supple without lymphadenopathy or JVD. LUNGS: Breath sounds clear to auscultation bilaterally and equal. No wheezes rales or rhonchi. HEART: Regular rate and rhythm without murmurs, rubs or gallops. ABDOMEN: Soft, nontender, normoactive bowel sounds. No guarding, no rebound. No masses appreciated. BACK: No cervical, thoracic, lumbar midline tenderness. No saddle anesthesia, normal distal neurovascular exam. GENITOURINARY: Deferred. EXTREMITIES: Left toes appear erythematous and tender to touch, there is a healing blister to the left lateral foot. There is a healing blister to the volar aspect of the foot, and to the tip of the left great toe. Patient has a strong right pedal pulse that is easily palpated, the left pedal pulse is prese nt but not easily found and decreased compared to the right. There is no ecchymosis or obvious deformity. Patient does have mild edema to the distal aspect of the foot. NEUROLOGICAL: Cranial nerves II through XII grossly intact. Normal speech, normal gait. PSYCH: Normal mood, normal affect. SKIN: Warm, Dry, normal turgor, no rashes or lesions noted. Course - Re-evaluation Re-evalutation: 04/27/19 11:40 Patient has reported intermittent left calf pain and swelling. Though the left pedal pulse is present it is decreased compared to the right foot. I will order a venous doppler of the left lower extremity and give patient pain medication. Thus far the lab work is unremarkable without a leukocytosis, electrolyte disturbance or abnormality. The x-ray of the foot does show soft tissue swelling but no osseous involvement or gas. 04/27/19 12:08 It was reported that the unofficial read of the venous doppler of the left e xtremity is negative. 04/27/19 12:45 I did discuss the patient's case with Dr. Tan regarding negative doppler, XRAY and labs. He recommends patient the patient on Keflex and Bactrim to cover staph and strep. Patient does need close follow-up with Dr. Garvin. I did discuss the results with the patient and she states she will call to make an appointment with Dr. Garvin. Informed patient to watch for open cuts and wounds and to wear protective shoes at home. Discussed with the patient wearing a more form fitting shoe as she wears boots that are too large for her at work. Educated the patient on keeping her foot clean and dry and to rest over the next few days and to keep the left lower extremity elevated. - Vital Signs Vital signs: Temp Pulse Resp BP Pulse Ox 98.0 F 87 16 120/66 99 04/27/19 13:01 04/27/19 13:01 04/27/19 13:01 04/27/19 13:01 04/27/19 13:01 - Laboratory Result Diagrams: 04/27/19 10:34 04/27/19 10:34 Laboratory results interpreted by me: 04/27/19 04/27/19 10:34 10:34 RDW 14.3 H Sodium 136.4 L Glucose 129 H - Diagnostic Test Radiology reviewed: Reports reviewed Discharge - Discharge Clinical Impression: Cellulitis, toe Qualifiers: Laterality: left Qualified Code(s): L03.032 - Cellulitis of left toe Condition: Stable Disposition: HOME, SELF-CARE Additional Instructions: Today you were seen in the emergency department for left toe pain and foot pain. Your x-ray was negative for any acute abnormality. We did obtain a venous Doppler of the left lower extremity which did not show a blood clot and did show adequate blood flow. It does appear that your toes have a surrounding cellulitis of the soft tissue. I am going to prescribe Keflex and Bactrim for this infection. Please take this for the full course of 7 days. Please follow- up with Dr. Garvin as soon as possible and call his office for an appointment. Please return to the emergency department for worsening signs and symptoms such as redness that streaks up the left leg, fever, vomiting or any other concerning signs or symptoms. Cellulitis You have an infection of your skin and underlying soft tissues called cellulitis. This is due to bacteria, which can enter through any break in the skin, or even through an irritated hair follicle. Untreated, cellulitis will usually worsen. Antibiotics are required. Usually, warm packs or warm soaks, and elevation of the infected area are recommended. You should start getting better within 24 to 36 hours. Most infections respond quickly to the right medication. Follow-up care is important, however, to check for abscess (boil) formation, unsuspected foreign body, or resistant infection. If you develop fever, chills, or if the area of infection is becoming rapidly more swollen or painful, call the doctor at once. Prescriptions: Cephalexin Monohydrate [Keflex 500 mg Capsule] 500 mg PO Q6H 7 Days #28 capsule Oxycodone HCl/Acetaminophen [Percocet 5-325 mg Tablet] 1 tab PO Q4H PRN #15 tablet PRN Reason: Sulfamethoxazole/Trimethoprim [Bactrim Ds Tablet] 1 each PO BID 7 Days #14 tablet Forms: Return to Work Referrals: BRADEN GARVIN DPM [ACTIVE STAFF] - Follow up as needed
[2019-04-27] MEDS ORDERED: SULFAMETHOXAZOLE/TRIMETHOPRIM 800-160 MG TABLET PO ONE (13:05)
[2019-04-27] MEDS ORDERED: CEPHALEXIN 500 MG CAPSULE PO ONE (13:05)
[2019-04-27 13:29] VITALS: BP 120/66
--- NOTE | 2019-04-27 13:48 | XCELERA REPORT ---
[address] [facility] [place] [id number] Lower Extremity Venous Evaluation Procedure: Color flow and duplex imaging of the veins of the left lower extremity as well as the right Common Femoral vein. Right Sided Venous Evaluation The right common femoral vein is fully compressible. Spontaneous and phasic flow is present in the right common femoral vein. Left Sided Venous Evaluation Normal vessel filling wall to wall, compression and augmentation as well as Colour flow down to the infrageniculate veins. Interpretation Summary No duplex evidence of DVT or obstruction in the left lower extremity nor in the right Common Femoral vein. Name: FESTUS SABA Age: 58 yrs Gender: Female : 1960 Patient Status: Preadmit Patient Location: ER Study Date: 04/27/2019 11:54 AM Reason For Study: left calf swelling/pain, decreased pedal pulse Ordering Physician: HAL DO Performed By: Maritza Herrera : HAL DO > Guido Connors
== END 2019-04-27 13:19 | disposition home or self-care (01) ==
LOC: ER 08:56
DX: L03.032 Cellulitis of left toe (principal); S90.822A Blister (nonthermal), left foot, initial encounter; X58.XXXA Exposure to other specified factors, initial encounter; M79.672 Pain in left foot; M79.662 Pain in left lower leg; F17.200 Nicotine dependence, unspecified, uncomplicated; I10 Essential (primary) hypertension
CPT/HCPCS: 36415; 80053; 85025; 93971; 99284